=== PATIENT | female | born 1965 | race Caucasian/White ===

== ENCOUNTER 2018-03-13 12:03 | Observation (INO) ==
[2018-03-13] MEDS ORDERED: Temazepam 15 MG Capsule PO PRN (20:16)
[2018-03-13] MEDS ORDERED: Bisacodyl 10 MG Supp RECTAL PRN (20:16)
--- NOTE | 2018-03-13 20:34 | P.HP ---
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 Episodes have been intermittent from then until yesterday symptoms recurred several times during the day he said normally she can rest and the symptoms go away on their own describes as a pressure-like sensation 7 out of 10 left-sided and substernal she noticed today that 1 of the episodes of chest pain was associated with mild mild confusion. Also noted there may have been some shortness of breath as well. Patient is on no medications and has no significant past medical history except being allergic to penicillin from years ago she had a cholecystectomy which was planned she has had a tear of the meniscus on the knee joint and a hysterectomy in the past is a non-smoker nondrinker also is adenotonsillectomy patient's electrocardiogram shows sinus with nonspecific ST-T wave changes no acute changes, initial set of cardiac enzymes are within normal limits. Will be admitted now to rule any rule out [place] continue aspirin full dose obtain cardiac scan and will consult cardiology. Patient will be maintained on a cardiac specialist. - Diagnosis (1) Chest pain (2) Chest pain Review of Systems All other systems reviewed negative except as stated in HPI [facility] - History History Provided By: Patient - Medical History Medical History: Medical History (Last Reviewed 03/13/18 @ 20:30 by James Walker MD) Cholecystectomy planned H/O tear of meniscus of knee joint H/O: hysterectomy - Surgical History Surgical History: Surgical History (Last Reviewed 03/13/18 @ 20:30 by James Walker MD) H/O tubal ligation Hx of tonsillectomy - Tobacco History Second Hand Smoke Exposure: No Smoking Status: Never smoker - Alcohol History How Often Do You Have a Drink Containing Alcohol: Never - Substance Use History Substance History: No History of Abuse Medications and Allergies Active Medications: Active Medications Acetaminophen (Tylenol) 650 mg PO Q4H PRN PRN Reason: HEADACHE Al Hydroxide/Mg Hydroxide (Milk Of Magnesia Liq) 30 ml PO Q12H PRN PRN Reason: Mild Constipation Aspirin (Aspirin) 325 mg PO DAILY [facility] Bisacodyl (Dulcolax Supp) 10 mg RECTAL DAILY PRN PRN Reason: SEVERE CONSITIPATION Lactulose (Lactulose Liq) 30 ml PO DAILY PRN PRN Reason: SEVERE CONSITIPATION Nitroglycerin (Nitro-Bid 2% Oint) 1 inch TOPICAL Q6HR [facility] Senna/Docusate Sodium (Brooke-Colace) 1 tab PO BID [facility] Sennosides (Senokot) 17.2 mg PO Q12H PRN PRN Reason: Moderate Constipation Temazepam (Restoril) 15 mg PO HS PRN PRN Reason: INSOMNIA Allergies Allergy/AdvReac Type Severity Reaction Status Date / Time Penicillins Allergy Unknown Verified 04/17/17 09:27 Home Medications Medication Instructions Recorded Confirmed Type No Known Home Medications 03/13/18 03/13/18 History Exam Vital signs: Blood pressure 130/82 pulse of 100 respiration rate of afebrile pulse ox 96% Narrative: GENERAL: SKIN: Warm and dry. HEAD: Atraumatic. Normocephalic. EYES: Pupils equal and round. No scleral icterus. No injection or drainage. ENT: No nasal bleeding or discharge. Mucous membranes pink and moist. NECK: Trachea midline. No JVD. CARDIOVASCULAR: Regular rate and rhythm. RESPIRATORY: No accessory muscle use. Clear to auscultation. Breath sounds equal bilaterally. GASTROINTESTINAL: Abdomen soft, non-tender, nondistended. Hepatic and splenic margins not palpable. MUSCULOSKELETAL: Extremities without clubbing, cyanosis, or edema. No obvious deformities. NEUROLOGICAL: Awake and alert. No obvious cranial nerve deficits. Motor grossly within normal limits. Five out of 5 muscle strength in the arms and legs. Normal speech. PSYCHIATRIC: Appropriate mood and affect; insight and judgment normal. Results - Labs Labs: Lab review showed normal CMP CBC UA cardiac enzymes electrocardiogram as stated above normal sinus rhythm nonspecific ST-T wave changes no acute changes chest x -ray negative Caprini VTE Risk Assessment Caprini VTE Risk Assessment: No/Low Risk (score <= 1) Caprini Risk Assessment Model: Point Value = 1 Point Value = 2 Point Value = 3 Point Value = 5 Age 41-60 Minor surgery BMI > 25 kg/m2 Swollen legs Varicose veins or History of unexplained or recurrent spontaneous Oral contraceptives or hormone replacement Sepsis (< 1 month) Serious lung disease, including pneumonia (< 1 month) Abnormal pulmonary function Acute myocardial infarction Congestive heart failure (< 1 month) History of inflammatory bowel disease Medical patient at bed rest Age 61-74 Arthroscopic surgery Major open surgery (> 45 min) Laparoscopic surgery (> 45 min) Malignancy Confined to bed (> 72 hours) Immobilizing plaster cast Central venous access Age >= 75 History of VTE Family history of VTE Factor V Leiden Prothrombin [id number] Lupus anticoagulant Anticardiolipin antibodies Elevated serum homocysteine Heparin-induced thrombocytopenia Other congenital or acquired thrombophilia Stroke (< 1 month) Elective arthroplasty Hip, pelvis, or leg fracture Acute spinal cord injury (< 1 month) Prophylaxis Regimen: Total Risk Factor Score Risk Level Prophylaxis Regimen 0-1 Low Early ambulation 2 Moderate Order ONE of the following: *Sequential Compression Device (SCD) *Heparin 5000 units SQ BID 3-4 Higher Order ONE of the following medications: *Heparin 5000 units SQ TID *Enoxaparin/Lovenox 40 mg SQ daily (WT < 150 kg, CrCl > 30 mL/min) *Enoxaparin/Lovenox 30 mg SQ daily (WT < 150 kg, CrCl > 10-29 mL/min) *Enoxaparin/Lovenox 30 mg SQ BID (WT < 150 kg, CrCl > 30 mL/min) AND/OR *Sequential Compression Device (SCD) 5 or more Highest Order ONE of the following medications: *Heparin 5000 units SQ TID (Preferred with Epidurals) *Enoxaparin/Lovenox 40 mg SQ daily (WT < 150 kg, CrCl > 30 mL/min) *Enoxaparin/Lovenox 30 mg SQ daily (WT < 150 kg, CrCl > 10-29 mL/min) *Enoxaparin/Lovenox 30 mg SQ BID (WT < 150 kg, CrCl > 30 mL/min) AND *Sequential Compression Device (SCD) Assessment and Plan - Assessment (1) Chest pain Code(s): R07.9 - Chest pain, unspecified Status: Acute Plan: Plan chest pain rule out cardiac EKG and enzymes serial as this is been a recurrent problem since January we will get myocardial scan and ask for cardiology input (2) Chest pain Code(s): R07.9 - Chest pain, unspecified Status: Acute - Plan Further plan as case develops, did have that one episode of confusion should recur may need a neurological workup as well. Code Status: Full Discussed Condition With: Patient and
[2018-03-13 21:13] LABS: Creatine Kinase 45 U/L (26-192)
[2018-03-13] MEDS: Senna/Docusate Sodium 8.6/50 MG Tablet PO SCH (22:26)
[2018-03-14 02:59] LABS: Thyroid Stimulating Hormone 0.938 uIU/mL (0.358-3.740)
[2018-03-14 04:11] LABS: Creatine Kinase 41 U/L (26-192)
[2018-03-14] MEDS: Acetaminophen 325 MG Tablet PO PRN ×2 (05:30→14:55)
[2018-03-14 08:33] LABS: Chloride 108 meq/L (98-107); Sodium 143 meq/L (136-145)
[2018-03-14 08:40] VITALS: RESP 17
[2018-03-14 08:40] LABS: Albumin 3.2 g/dL (3.4-5.0); Calcium 7.9 mg/dL (8.5-10.1)
[2018-03-14 08:41] LABS: Anion Gap 9 meq/L (5-15); Blood Urea Nitrogen 16 mg/dL (7-18); Carbon Dioxide 26.5 meq/L (21.0-32.0); Glucose,Random 105 mg/dL (74-106)
[2018-03-14 08:43] LABS: Alanine Aminotransferase 28 U/L (10-53); Aspartate Aminotransferase 10 U/L (15-37)
[2018-03-14 08:44] LABS: Glomerular Filtration Rate Greater Than 89 mL/min (>89); Total Protein 6.5 g/dL (6.4-8.2)
[2018-03-14 08:46] LABS: Alkaline Phosphatase 70 U/L (45-117)
--- NOTE | 2018-03-14 08:52 | P.CONCA ---
History of Present Illness Service: Cardiology Consult date: 03/14/18 Requesting Physician: James Walker Reason for Consult: Chest pain Primary Care Provider: Dustin Anders MD Chief Complaint: Worsening chest pain over the last 2 days History of Present Illness: She is a very nice 52nyo lady, presented to [facility] with chest pain, and was transferred to [facility] for further work up. She has been complaining of intermittent left-sided chest pain to mid chest area associated with numbness to her left perioral area with left arm discomfort which is been going on since January. 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 Episodes have been intermittent from then until yesterday symptoms recurred several times during the day he said normally she can rest and the symptoms go away on their own describes as a pressure-like sensation 7 out of 10 left-sided and substernal she noticed today that 1 of the episodes of chest pain was associated with mild mild confusion. Also noted there may have been some shortness of breath as well. Patient is on no medications and has no significant past medical history except being allergic to penicillin from years ago she had a cholecystectomy which was planned she has had a tear of the meniscus on the knee joint and a hysterectomy in the past is a non-smoker nondrinker also is adenotonsillectomy patient's electrocardiogram shows sinus with nonspecific ST-T wave changes no acute changes, troponin negative x 2 sets. No further chest pain since admission. Review of Systems All other systems reviewed negative except as stated in HPI [facility] - History History Provided By: Patient - Medical History Medical History: Medical History (Last Reviewed 03/13/18 @ 20:30 by Jamse Walker MD) Cholecystectomy planned H/O tear of meniscus of knee joint H/O: hysterectomy - Surgical History Surgical History: Surgical History (Last Reviewed 03/13/18 @ 20:30 by James Walker MD) H/O tubal ligation Hx of tonsillectomy - Tobacco History Second Hand Smoke Exposure: No Smoking Status: Never smoker - Alcohol History How Often Do You Have a Drink Containing Alcohol: Never - Substance Use History Substance History: No History of Abuse - Immunization History Tetanus Immunization: Unable to Assess Medications and Allergies Active Medications: Active Medications Acetaminophen (Tylenol) 650 mg PO Q4H PRN PRN Reason: HEADACHE Last Admin: 03/14/18 05:30 Dose: 650 mg Al Hydroxide/Mg Hydroxide (Milk Of Magnesia Liq) 30 ml PO Q12H PRN PRN Reason: Mild Constipation Aspirin (Aspirin) 325 mg PO DAILY [facility] Bisacodyl (Dulcolax Supp) 10 mg RECTAL DAILY PRN PRN Reason: SEVERE CONSITIPATION Lactulose (Lactulose Liq) 30 ml PO DAILY PRN PRN Reason: SEVERE CONSITIPATION Nitroglycerin (Nitro-Bid 2% Oint) 1 inch TOPICAL Q6HR [facility] Last Admin: 03/14/18 05:28 Dose: 1 inch Senna/Docusate Sodium (Brooke-Colace) 1 tab PO BID [facility] Last Admin: 03/13/18 22:26 Dose: Not Given Sennosides (Senokot) 17.2 mg PO Q12H PRN PRN Reason: Moderate Constipation Temazepam (Restoril) 15 mg PO HS PRN PRN Reason: INSOMNIA Allergies Allergy/AdvReac Type Severity Reaction Status Date / Time Penicillins Allergy Unknown Verified 04/17/17 09:27 Home Medications Medication Instructions Recorded Confirmed Type No Known Home Medications 03/13/18 03/13/18 History Exam Vital signs: Vital Signs 03/13/18 20:00 03/13/18 20:29 03/13/18 23:52 Temperature 97.4 F L 97.5 F L Pulse Rate 65 78 66 Respiratory Rate 20 20 Blood Pressure 162/70 H 107/55 L Pulse Oximetry 95 97 03/14/18 01:50 03/14/18 04:00 03/14/18 08:00 Temperature 96.8 F L 97.6 F Pulse Rate 68 70 Respiratory Rate 20 17 Blood Pressure 119/60 116/56 L Pulse Oximetry 96 99 96 Intake & Output 03/13/18 03/14/18 03/14/18 18:59 06:59 18:59 Intake Total 0 / 0 Balance 0 / 0 Weight 86.7 kg Intake: Oral 0 / 0 Other: # Voids 1 Weight On Admission 86.7 kg - Constitutional no acute distress - Routine HEENT Exam Head: Present: normocephalic, atraumatic Eye: Present: EOMI, PERRL, normal accommodation ENT: Present: mucous membranes moist - Routine Neck Exam Present: supple, full ROM, JVD. Absent: carotid bruit - Routine Chest/Breast/Axilla Exam Chest wall: Absent: tenderness - Routine Respiratory Exam Present: CTA bilaterally - Routine Cardiovascular Exam Present: RRR, S1, S2. Absent: murmur, gallop, rubs - Routine Abdominal Exam Present: soft, normoactive bowel sounds - Routine Extremities Exam Present: full ROM, normal capillary refill - Routine Skin Exam Present: intact - Routine Neurological Exam Present: alert, oriented X3, CN II-XII intact Results 03/14/18 07:29 Cardiac Enzymes 03/13/18 03/14/18 Range/Units 20:44 02:00 Troponin I Less than 0.02 L Less than 0.02 L (0.02-0.05) ng/mL Comprehensive Metabolic Panel 03/14/18 Range/Units 07:29 Sodium 143 (136-145) meq/L Potassium 4.0 (3.5-5.1) meq/L Chloride 108 H (98-107) meq/L Carbon Dioxide 26.5 (21.0-32.0) meq/L BUN 16 (7-18) mg/dL Calcium 7.9 L D (8.5-10.1) mg/dL Albumin 3.2 L (3.4-5.0) g/dL Intake and Output 03/13/18 03/14/18 03/14/18 22:59 06:59 14:59 Intake Total 0 / 0 Balance 0 / 0 Intake: Oral 0 / 0 Other: # Voids 1 Weight 86.7 kg 86.7 kg Weight On Admission 86.7 kg Assessment and Plan - Assessment (1) Chest pain Code(s): R07.9 - Chest pain, unspecified Status: Acute - Plan Chest pain, low risk factor, typical symptoms, agreed non invasive myocardial perfusion stress test, if negative, consider outpatient follow up with cardiology. May consider outpatient workup for possible cervical spine radiculopathy.
[2018-03-14 08:55] LABS: Creatine Kinase 36 U/L (26-192)
--- NOTE | 2018-03-14 09:27 | P.PN ---
Subjective Interval history: Patient doing well no further chest pain appreciate cardiology note ,agree with stress test if negative discharge home ,may need neuro work up as outpatient. labs ,cardiac enzymes negative lipids pending Physical Exam Vital signs: Vital Signs 03/13/18 20:00 03/13/18 20:29 03/13/18 23:52 Temperature 97.4 F L 97.5 F L Pulse Rate 65 78 66 Respiratory Rate 20 20 Blood Pressure 162/70 H 107/55 L Pulse Oximetry 95 97 03/14/18 01:50 03/14/18 04:00 03/14/18 08:00 Temperature 96.8 F L 97.6 F Pulse Rate 68 70 Respiratory Rate 20 17 Blood Pressure 119/60 116/56 L Pulse Oximetry 96 99 96 Intake & Output 03/13/18 03/14/18 03/14/18 18:59 06:59 18:59 Intake Total 0 / 0 Balance 0 / 0 Weight 86.7 kg Intake: Oral 0 / 0 Other: # Voids 1 Weight On Admission 86.7 kg Narrative: GENERAL: SKIN: Warm and dry. HEAD: Normocephalic. EYES: No scleral icterus. No injection or drainage. NECK: Supple, trachea midline. No JVD or lymphadenopathy. CARDIOVASCULAR: Regular rate and rhythm without murmurs, gallops, or rubs. RESPIRATORY: Breath sounds equal bilaterally. No accessory muscle use. GASTROINTESTINAL: Abdomen soft, non-tender, nondistended. MUSCULOSKELETAL: No cyanosis, or edema. BACK: Nontender without obvious deformity. No CVA tenderness. Results - Labs CBC & Chem 7: 03/14/18 07:29 Laboratory Results - last 24 hr 03/13/18 03/14/18 03/14/18 20:44 02:00 07:29 Sodium 143 Potassium 4.0 Chloride 108 H Carbon Dioxide 26.5 Anion Gap 9 BUN 16 Creatinine 0.53 Estimated GFR Greater than 89 Random Glucose 105 Calcium 7.9 L D Total Bilirubin 0.7 AST 10 L ALT 28 Alkaline Phosphatase 70 Total Creatine Kinase 45 41 36 Troponin I Less than 0.02 L Less than 0.02 L Less than 0.02 L Total Protein 6.5 Albumin 3.2 L TSH 0.938 Assessment and Plan - Assessment (1) Chest pain Code(s): R07.9 - Chest pain, unspecified Status: Acute Plan: Plan chest pain rule out cardiac EKG and enzymes serial as this is been a recurrent problem since January we will get myocardial scan and ask for cardiology input Enzymes and ekg no acute changes await myocardial scan (2) Chest pain Code(s): R07.9 - Chest pain, unspecified Status: Acute - Plan Further plan as case develops, did have that one episode of confusion should recur may need a neurological workup as well.
[2018-03-14] MEDS: Senna/Docusate Sodium 8.6/50 MG Tablet PO SCH (11:08)
--- NOTE | 2018-03-14 13:10 | ECG ---
Date Performed: 03/14/2018 Time Performed: 01:46:22 PTAGE: 52 years EKG: Sinus rhythm WITH OCCASIONAL SUPRAVENTRICULAR PREMATURE COMPLEXES NONSPECIFIC T-WAVE ABNORMALITY BORDERLINE ECG PREVIOUS TRACING : 03/13/2018 20.31 DOCTOR: Stacey Valdes Interpretating Date/Time 03/14/2018 13:07:41
[2018-03-14] MEDS ORDERED: Regadenoson Inj 0.4 MG/5 ML Syringe IV.PUSH ONE (13:12)
--- NOTE | 2018-03-14 13:13 | ECG ---
Date Performed: 03/13/2018 Time Performed: 20:31:48 PTAGE: 52 years EKG: Sinus rhythm NONSPECIFIC T-WAVE ABNORMALITY BORDERLINE ECG NO PREVIOUS TRACING DOCTOR: Stacey Valdes Interpretating Date/Time 03/14/2018 13:09:06
[2018-03-14 13:22] VITALS: BP 133/57; PULSE 73; TEMP 97; O2SAT 97
--- NOTE | 2018-03-14 14:45 | NM ---
EXAM DATE: 03/14/2018 12:54 PM EDT AGE/SEX: 52 years / Female INDICATIONS:Abnormal EKG. . Chest pain. CLINICAL DATA: This is the patient's initial encounter. Patient reports that signs and symptoms have been present for 1 day and indicates a pain score of 0/10. MEDICAL/SURGICAL HISTORY: None. Hysterectomy. Tonsillectomy. COMPARISON: No prior exams available for comparison. DOSE: 8.5 mCi Tc 99m Myoview at rest 26.5 mCi [id number] at stress 0.4 mg Lexiscan STRESS SYMPTOMS: Headache, dyspnea and anxious. EJECTION FRACTION: 53 % TECHNIQUE: The patient underwent pharmacologic stress with infusion of prescribed dose. Continuous ECG tracing was monitored during stress. Gated SPECT imaging was performed after stress and conventi onal SPECT imaging was performed at rest. The examination was performed on a SPECT/CT scanner, both attenuation and non-corrected datasets were reviewed. FINDINGS: Distribution: The maximum perfused segment at stress is in the lateral wall. Perfusion Study: The pattern of perfusion at stress is within normal limits. Gated Study: There are intact wall motion and wall thickening without hypokinetic or dyskinetic segm ents. The ejection fraction is calculated at 53%. RISK CATEGORY: Low (<1% Annual Motality Rate) CONCLUSION: 1. Unremarkable myocardial perfusion examination. Electronically signed by: Scout Foss MD 03/14/2018 2:44 PM EDT
[2018-03-14 16:30] LABS: Cholesterol 175 mg/dL (120-200); Triglycerides 67 mg/dL (42-150)
[2018-03-14 16:34] LABS: Chol/HDL Ratio 3.56 Ratio; HDL Cholesterol 49.1 mg/dL (40.0-60.0); LDL Cholesterol,Calculated 113 mg/dL (0-99)
--- NOTE | 2018-03-14 18:44 | P.DS ---
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 Episodes have been intermittent from then until yesterday symptoms recurred several times during the day he said normally she can rest and the symptoms go away on their own describes as a pressure-like sensation 7 out of 10 left-sided and substernal she noticed today that 1 of the episodes of chest pain was associated with mild mild confusion. Also noted there may have been some shortness of breath as well. Patient is on no medications and has no significant past medical history except being allergic to penicillin from years ago she had a cholecystectomy which was planned she has had a tear of the meniscus on the knee joint and a hysterectomy in the past is a non-smoker nondrinker also is adenotonsillectomy patient's electrocardiogram shows sinus with nonspecific ST-T wave changes no acute changes, initial set of cardiac enzymes are within normal limits. Will be admitted now to rule any rule out [place] continue aspirin full dose obtain cardiac scan and will consult cardiology. 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 DS: Diagnosis - Discharge Diagnosis (1) Chest pain Status: Acute (2) Chest pain Status: Acute DS: Summary Hospital Course: Patient admitted had no further episodes of chest pain ,labs all normal cardiology consulted and agreed to get myocaardial scan. Myocardial scan negative . Patient discharge home with follow up to PCP. Will send to PCP note as to follow up may need outpatient neuro work up for episode of confusion. - Time Spent with Patient Total time spent providing and/or coordinating discharge services: Less than 30 minutes - Quality: VTE Deep Vein Thrombosis/Pulmonary Embolism Present on Admission: No Exam Vital signs: Vital Signs 03/13/18 20:00 03/13/18 20:29 03/13/18 23:52 Temperature 97.4 F L 97.5 F L Pulse Rate 65 78 66 Respiratory Rate 20 20 Blood Pressure 162/70 H 107/55 L Pulse Oximetry 95 97 03/14/18 01:50 03/14/18 04:00 03/14/18 08:00 Temperature 96.8 F L 97.6 F Pulse Rate 68 65 Respiratory Rate 20 17 Blood Pressure 119/60 116/56 L Pulse Oximetry 96 99 96 03/14/18 12:00 Temperature 97.0 F L Pulse Rate 73 Respiratory Rate 17 Blood Pressure 133/57 L Pulse Oximetry 97 Intake & Output 03/13/18 03/14/18 03/14/18 18:59 06:59 18:59 Intake Total 0 / 0 Balance 0 / 0 Weight 86.7 kg Intake: Oral 0 / 0 Other: # Voids 1 Date of Last Bowel Movement 03/13/18 Weight On Admission 86.7 kg Narrative: GENERAL: SKIN: Warm and dry. HEAD: Normocephalic. EYES: No scleral icterus. No injection or drainage. NECK: Supple, trachea midline. No JVD or lymphadenopathy. CARDIOVASCULAR: Regular rate and rhythm without murmurs, gallops, or rubs. RESPIRATORY: Breath sounds equal bilaterally. No accessory muscle use. GASTROINTESTINAL: Abdomen soft, non-tender, nondistended. MUSCULOSKELETAL: No cyanosis, or edema. BACK: Nontender without obvious deformity. No CVA tenderness. Results Procedures completed during hospitalization: myocardial scan Labs on day of discharge: Labs from last 24 hours 03/14/18 03/14/18 03/13/18 07:29 02:00 20:44 Sodium 143 Potassium 4.0 Chloride 108 H Carbon Dioxide 26.5 Anion Gap 9 BUN 16 Creatinine 0.53 Estimated GFR Greater than 89 Random Glucose 105 Calcium 7.9 L D Total Bilirubin 0.7 AST 10 L ALT 28 Alkaline Phosphatase 70 Total Creatine Kinase 36 41 45 Troponin I Less than 0.02 L Less than 0.02 L Less than 0.02 L Total Protein 6.5 Albumin 3.2 L Triglycerides 67 Cholesterol 175 LDL Cholesterol, Calc 113 H HDL Cholesterol 49.1 Cholesterol/HDL Ratio 3.56 TSH 0.938 - Impressions ITS Impressions Myocardial Perfusion Scan Nuc Med 03/14/18 00:00 CONCLUSION: 1. Unremarkable myocardial perfusion examination. Discharge Plan - Discharge Disposition Patient Disposition: 01 Discharge Home - Discharge Condition Condition: Good - Discharge Order Discharge Orders: Discharge Order (Routine); Ordered 03/14/18 Ordered By: James Walker - Discharge Details Anticipated Discharge Date: 03/14/18 - Physicians Team Primary Care Provider: Dustin Anders Attending Provider: James Walker Other Providers: Wing Curtis Stephens MD - Rxs /Orders / Referrals /Forms Prescriptions: Continue No Known Home Medications Referrals: Dustin Anders MD [Primary Care Provider] - See Instructions - Discharge Instructions Patient Printed Instructions: Noncardiac Chest Pain (ED) Additional Instructions: follow up with cardiology in one to two weeks. go to the main hospital if symptoms return.
[2018-03-14] MEDS ORDERED: Aspirin 325 MG Tablet PO SCH (20:07)
== END 2018-03-14 15:34 | disposition home or self-care (01) ==
LOC: NEDDLT 12:03 → PH3 19:10 → INTOOBSV 19:10
PROVIDERS: ADMIT Internal Medicine; ATTEND Internal Medicine